=== PATIENT | female | born 1955 | race Caucasian/White ===

== ENCOUNTER → 2020-12-23 | Outpatient (CLI) | payer OTHER | LOC: COL.RAD 12:13 | DX: C50.412 Malignant neoplasm of upper-outer quadrant of left female breast (principal); R51.9 Headache, unspecified | CPT/HCPCS: A9585 ==

== ENCOUNTER → 2023-10-29 | Outpatient (CLI) | payer MEDICARE ==
[~2023-10-29] MED LIST: ARIMIDEX1 MG PO; ASPIRIN 81M81 MG/TA2 PO; CALCIUM 600600 MG PO; CARAFATE 1GM1 G PO; DEMADEX 20MG20 M1; EFFEXOR XR75 MG/CAP PO; FOSAMAX 70MG TA70 MG PO; IRON TABLETS325 MG PO; K-TAB20 PO; LINZESS72 MCG PO; LOMOTIL 0.025 M1 TAB PO; MAG-OX 400400 MG/TAB PO; MASON NATURAL2000 IU PO; MOBIC15 MG PO; NEXIUM 40MG40 MG PO; ONCOVITE1 TAB; REGLAN 10MG10 MG/TAB PO; VITAMIN C500 MG PO; XANAX 0.5MG0.5 MG PO; ZOFRAN8 MG PO; ZOLOFT 25MG25 MG PO
== END ==
LOC: MC.RAD 08:52
DX: C50.412 Malignant neoplasm of upper-outer quadrant of left female breast (principal); C77.3 Secondary and unspecified malignant neoplasm of axilla and upper limb lymph nodes

== ENCOUNTER → 2023-10-31 | Outpatient (CLI) | payer MEDICARE | LOC: MC.RAD 10:15 | DX: C50.412 Malignant neoplasm of upper-outer quadrant of left female breast (principal); C77.3 Secondary and unspecified malignant neoplasm of axilla and upper limb lymph nodes ==

== ENCOUNTER 2024-02-04 08:54 | Day surgery (SDC) | payer MEDICARE ==
[~2024-02-04] VITALS: Ht 170.2 cm; Wt 73.6 kg
[~2024-02-04 08:54] MED LIST changes: +COLACE 100100 MG/CAP PO; +LR 1,000 ML IV SCH; +MULTI VITAMINS1 TAB PO; +Ondansetron 4 MG/2 ML VIAL IV PRN; +PROBIOTIC-MAJOR PO; +TYLENOL 325MG325 MG PO
[2024-02-04] MEDS ORDERED: Lidocaine PF 2% (20 MG/ML) 5 ML VIAL ONE (09:32)
[2024-02-04] MEDS ORDERED: Glycopyrrolate 0.2 MG/ML 1 ML VIAL ONE (09:32)
[2024-02-04 10:34] VITALS: BP 116/84; PULSE 73; TEMP 97.9
[2024-02-04 11:17] VITALS: BP 134/89; PULSE 78; TEMP 98.1
[2024-02-04 11:20] VITALS: BP 128/97; PULSE 81
[2024-02-04 11:30] VITALS: BP 121/94; PULSE 74
[2024-02-04 11:45] VITALS: BP 142/90; PULSE 74
[2024-02-04 12:00] VITALS: BP 145/92; PULSE 71
--- NOTE | 2024-02-04 12:11 | NUR ---
1117- PATIENT RETUR[place] [facility] [place]. PT AWAKE AND ALERT. RESPIRATIONS UNLABORED. AMBULATED TO RECLINER CHAIR WITH 2:1 SBA. PT DENIES NAUSEA OR ABDOMINAL PAIN. HOOKED UP TO MONITOR AND VS OBTAINED. CALL LIGHT AT SIDE AND PRESENT. 1125- PATIENT TOLERATING ORANGE JUICE AND JELLO WITHOUT NAUSEA OR DIFFICULTY SWALLOWING. 1133- D/C INSTRUCTIONS REVIEWED WITH PATIENT. PT VERBALIZED UNDERSTANDING AND A COPY OF INSTRUCTIONS PROVIDED IN D/C FOLDER. 1143- PT DRESSED SELF WITH ASSISTANCE FROM . 1155- DR. SALMON IN ROOM SPEAKING WITH PATIENT. 1211- PATIENT DISCHARGED FROM UNIT VIA W/C TO A PERSONAL VEHICLE. PT LEFT HOSPITAL IN STABLE CONDITION.
== END 2024-02-04 12:11 | disposition home or self-care (01) ==
LOC: SDCO 08:54
DX: K31.1 Adult hypertrophic pyloric stenosis (principal); K25.7 Chronic gastric ulcer without hemorrhage or perforation; K29.30 Chronic superficial gastritis without bleeding; K31.A0 Gastric intestinal metaplasia, unspecified
CPT/HCPCS: C1726; J2704; J7120